=== PATIENT | male | born 1985 | race Caucasian/White ===

== ENCOUNTER 2022-09-28 11:11 | Emergency (ER) | payer OTHER ==
[~2022-09-28] VITALS: Ht 175.3 cm; Wt 96.2 kg
[~2022-09-28 11:11] MED LIST: ALBU90OI INH; AMOX500 PO; CEPH500 PO; ERYT333ERA PO; HYDACE5 PO; IBUP800 PO
[2022-09-28] MEDS ORDERED: LOSA25 PO (11:25)
[2022-09-28] MEDS ORDERED: Amlodipine Bes2.5 MG PO (11:26)
[2022-09-28 11:57] LABS: Albumin, Blood 4.1 g/dL (3.4-5.0); Albumin/Globulin Ratio 1.4 (0.8-1.8); Bilirubin, Total 1.3 mg/dL (0.1-1.0); Bun/Creatinine Ratio 14.5 (12.0-20.0); Calcium, Blood 9.1 mg/dL (8.5-10.1); Creatinine, Blood 0.83 mg/dL (0.60-1.20); Total Protein, Blood 7.1 g/dL (6.4-8.2)
[2022-09-28 12:00] LABS: BASOPHILS ABSOLUTE AUTO 0.07 K/mm3 (0.00-0.23); BASOPHILS PERCENT AUTO 1 % (0-2); EOSINOPHILS ABSOLUTE AUTO 0.18 K/mm3 (0.00-0.68); EOSINOPHILS PERCENT AUTO 2 % (0-6); Hematocrit 44.3 % (37.0-53.0); Hemoglobin 16.5 g/dL (13.5-17.5); IMMATURE GRAN PERCENT AUTO 1 % (0-1); LYMPHOCYTES ABSOLUTE AUTO 4.07 K/mm3 (0.84-5.20); LYMPHOCYTES PERCENT AUTO 41 % (21-46); MONOCYTES ABSOLUTE AUTO 1.11 K/mm3 (0.16-1.47); MONOCYTES PERCENT AUTO 11 % (4-13); Mean Corpuscular HGB 32.2 pg (26.0-34.0); Mean Corpuscular HGB Conc 37.2 g/dL (31.5-36.5); Mean Corpuscular Volume 86 fL (80-100); Mean Platelet Volume 10.4 fL (9.1-12.4); NEUTROPHILS PERCENT AUTO 45 % (41-73); Platelet Count 264 K/mm3 (150-400); RDW Coefficient Variation 11.7 % (11.7-14.2); RDW Standard Deviation 36.8 fL (35.1-46.3); Red Blood Cell Count 5.13 M/mm3 (4.30-5.90); White Blood Cell Count 10.03 K/mm3 (4.00-11.30)
[2022-09-28 14:15] VITALS: BP 116/61
[2022-09-28] MEDS ORDERED: HYDR1TAB94 PO (14:25)
[2022-09-28] MEDS ORDERED: ONDA4ODT MM (14:25)
== END 2022-09-28 14:31 | disposition home or self-care (01) ==
LOC: ER 11:11
PROVIDERS: Emergency Medicine
DX: K52.9 Noninfective gastroenteritis and colitis, unspecified (principal); I10 Essential (primary) hypertension; J45.909 Unspecified asthma, uncomplicated; Z79.899 Other long term (current) drug therapy; Z87.891 Personal history of nicotine dependence
CPT/HCPCS: 74177; 80053; 83690; 85025; 99284-25; Q9967

== ENCOUNTER → 2022-11-12 | Outpatient (CLI) | payer OTHER ==
[~2022-11-12] MED LIST changes: +Amlodipine Bes2.5 MG PO; +HYDR1TAB94 PO; +LOSA25 PO; +ONDA4ODT MM
== END ==
LOC: LAB SHORT 09:00 → LAB 09:00
DX: R93.3 Abnormal findings on diagnostic imaging of other parts of digestive tract (principal)
CPT/HCPCS: 83993

== ENCOUNTER 2022-11-14 06:32 | Day surgery (SDC) | payer OTHER ==
[~2022-11-14] VITALS: Ht 175.3 cm; Wt 93.8 kg
[2022-11-14 08:44] VITALS: BP 106/83
== END 2022-11-14 08:51 | disposition home or self-care (01) ==
LOC: ORSCSDS 06:32
PROVIDERS: Internal Medicine Gastroenterology
PROC: 0DBE8ZX Excision of Large Intestine, Via Natural or Artificial Opening Endoscopic, Diagnostic (ICD-10-PCS; principal; 2022-11-14 08:00)
DX: R93.3 Abnormal findings on diagnostic imaging of other parts of digestive tract (principal); I10 Essential (primary) hypertension; R79.89 Other specified abnormal findings of blood chemistry; Z79.899 Other long term (current) drug therapy
CPT/HCPCS: 88305; J2704; J7120